=== PATIENT | female | born 2000 ===

== ENCOUNTER 2024-07-22 06:44 | Day surgery (SDC) | payer OTHER ==
[2024-07-20 12:14] LABS: BASO % 0.3 % (0.1-1.2); EOS # 0.05 (0.04-0.54); EOS % 0.7 % (0.7-7.0); HEMOGLOBIN 12.1 g/dL (11.2-15.7); LYMPH # 1.51 (1.18-3.74); LYMPH % 20.6 % (19.3-53.1); MEAN CORPUSCULAR HEMOGLOBIN 29.1 pg (25.6-32.2); MONO # 0.41 (0.24-0.82); MONO % 5.6 % (4.7-12.5); NEUT % 72.3 % (34.0-71.1); PLATELET COUNT 249 K/uL (163-369); RED BLOOD COUNT 4.16 M/uL (3.93-5.22); RED CELL DISTRIBUTION WIDTH 12.8 % (11.6-14.4)
[2024-07-20 12:16] LABS: URINE APPEARANCE Clear; URINE BILIRRUBIN Negative (NEGATIVE); URINE BLOOD Negative; URINE COLOR Yellow; URINE GLUCOSE Negative (NEGATIVE); URINE KETONE Negative (NEGATIVE); URINE LEUKOCYTE Large; URINE NITRATE Negative; URINE PROTEIN Negative (NEGATIVE); URINE UROBILINOGEN 0.2 E.U./dl
[2024-07-20 12:18] LABS: URINE BACTERIA 220.2 uL (0.0-1933); URINE EPITHELIAL CELLS 53.1 uL (0.0-38.8); URINE RBC 3.5 uL (0.0-20.8)
[2024-07-20 12:40] LABS: URINE MUCUS SCANT; URINE YEAST FEW /hpf
[2024-07-20 12:56] LABS: INR 1.02; PARTIAL THROMBOPLASTIN TIME 27.6 SECONDS (22.0-34.0); PROTHROMBIN TIME 11.1 SECONDS (9.0-11.5)
[2024-07-20 13:05] LABS: ALBUMIN 4.4 gm/dL (3.4-5.0); BILIRUBIN TOTAL 0.5 mg/dL (0.3-1.2); CALCIUM 9.5 mg/dL (8.5-10.1); CREATININE SERUM 0.66 mg/dL (0.55-1.02); GFR 111.99; POTASSIUM 4.11 mEq/L (3.5-5.1); TOTAL PROTEIN 7.4 gm/dL (6.4-8.2)
[2024-07-20 13:06] VITALS: BP 102/66
[~2024-07-22] VITALS: Ht 167.6 cm; Wt 59.9 kg
[2024-07-22] MEDS ORDERED: METRONIDAZOLE/SODIUM CHLORIDE 500 MG/100 ML PIGGYBACK IV ONE (08:16)
[2024-07-22] MEDS ORDERED: CEFTRIAXONE SODIUM 2,000 MG VIAL ONE (08:16)
[2024-07-22] MEDS ORDERED: BUPIVACAINE LIPOSOME/PF 266 MG/20 ML VIAL IJ ONE (09:02)
[2024-07-22] MEDS ORDERED: BUPIVACAINE HCL/MPF 0.5% 30ML VIAL ONE (09:06)
[2024-07-22] MEDS ORDERED: POVIDONE-IODINE 118 ML BOTT TOP ONE (09:06)
[2024-07-22] MEDS ORDERED: HEMOSTATIC MATRIX 1 KIT KIT TOP ONE (09:06)
[2024-07-22] MEDS ORDERED: DIBUCAINE 30 GM TUBE ONE (09:06)
[2024-07-22] MEDS ORDERED: BUPIVACAINE HCL/Mpf 0.5% 10ML VIAL ONE (09:32)
[2024-07-22] MEDS ORDERED: TRAM1TAB98 PO (11:07)
[2024-07-22] MEDS ORDERED: COLACE100 MG PO (11:07)
[2024-07-22] MEDS ORDERED: NEURONTIN300 MG PO (11:07)
== END 2024-07-22 16:55 | disposition home or self-care (01) ==
LOC: CIR.AMB 06:44
PROVIDERS: ATTEND Surgery
DX: K64.1 Second degree hemorrhoids (principal); K64.4 Residual hemorrhoidal skin tags